=== PATIENT | male | born 1945 | race Caucasian/White ===

== ENCOUNTER 2019-04-22 16:55 | Inpatient (IN) ==
[2019-04-22] MEDS ORDERED: Aspirin 325 MG TABLET PO ONE (17:04)
--- NOTE | 2019-04-22 17:16 | Emergency Department Note ---
Disposition Clinical Impression: Unstable angina pectoris, ANTIONETTE (acute kidney injury) Disposition: Admitted As Inpatient Condition: Fair Time of Disposition: 18:58 Chest Pain HPI - General Chief Complaint: ED Chest Pain Stated Complaint: EKG changes Time Seen by Provider: 04/22/19 17:03 Source: EMS Mode of arrival: EMS Limitations: no limitations Vital Signs Reviewed: Yes Nursing Notes Reviewed: Yes - History of Present Illness HPI Narrative: 74-year-old male with history of CAD with 2 vessel CABG 2003 arrives to the emergency department with intermittent episodes complaints of chest pain at rest and during exertion. His dyspnea on exertion as well. Apparently the patient was getting evaluated for black lung at [facility] in [facility] where the patient was noted to have an abnormal stress test. He was subsequently referred back to the [facility] where he sees most of his primary care physician and caregivers. They sent him to the urgent care who subsequent sent him here to [facility]. The patient had a CBC and a troponin. CBC demonstrated a leukocytosis of 5.0, hemoglobin of 12.0. The patient's troponin was less than 0.015 which is normal on their scale. EKG there demonstrated no acute process. The patient was subsequently sent to [facility] for admission and "likely cardiac catheterization". The patient does admit to intermittent episodes of chest pressure on bilateral aspects of his upper chest that is worse with exertion. The patient does have a component where he has this pressure at rest. She stated that in route to the hospital he had an episode. He denies any hemoptysis, unilateral leg swelling, recent surgeries or lesions. Patient is otherwise resting comfortably in the room at this time. Severity scale (1-10): 0 - Related Data Allergies Allergy/AdvReac Type Severity Reaction Status Date / Time No Known Allergies Allergy Verified 04/22/19 17:12 All systems ED: reviewed and negative except as stated. Constitutional: Denies: fever, chills, weakness, weight change ENT ED: Denies: dysphagia Cardiovascular: Reports: chest pain, dyspnea on exertion, edema. Denies: orthopnea, syncope Respiratory: Denies: cough, dyspnea, sputum production Gastrointestinal: Denies: abdominal pain Genitourinary: Denies: urgency, dysuria Musculoskeletal: Denies: back pain Integumentary: Denies: rash Neurological: Denies: headache Chest Pain PMH - Past Medical History Medical history: Reports: hypertension Psychiatric history: Reports: no psych history - Social History Smoking Status: Former smoker Alcohol use: Reports: none Drug use: Reports: none Physical Exam - General Limitations: no limitations General appearance: alert, in no apparent distress - Head Head exam: atraumatic, normocephalic, normal inspection - Eye Eye exam: Present: normal appearance, PERRL, EOMI - ENT ENT exam: normal exam, normal oropharynx, mucous membranes moist - Neck Neck exam: Present: normal inspection, full ROM, trachea midline - Chest Chest inspection: Present: normal inspection, symmetric chest wall rise - Respiratory Respiratory exam: Present: normal lung sounds bilaterally - Cardiovascular Cardiovascular exam: Present: regular rate, normal rhythm, normal heart sounds - Abdominal Exam Abdominal exam: Present: soft, Non-Tender. Absent: tenderness, distention, guarding, rebound, rigidity - Extremities Exam Extremities exam: Present: normal inspection, full ROM, normal capillary refill. Absent: tenderness, pedal edema - Neurological Exam Neurological exam: Present: alert, oriented X3 - Skin Skin exam: Present: warm, dry, intact, normal color Course Vital Signs Temperature 97.7 F 04/22/19 17:04 Pulse Rate 62 04/22/19 17:04 Respiratory Rate 18 04/22/19 17:04 Blood Pressure 143/74 04/22/19 17:04 O2 Sat by Pulse Oximetry 100 04/22/19 17:04 Temperature 97.7 F 04/22/19 17:04 Pulse Rate 62 04/22/19 17:04 Respiratory Rate 18 04/22/19 17:04 Blood Pressure 143/74 04/22/19 17:04 O2 Sat by Pulse Oximetry 100 04/22/19 17:04 Oxygen Delivery Oxygen Delivery Room Air Procedures - Ultrasound-Other Narrative: Point of Care bedside ultrasound of the patient's cardiac movement demonstrates no pericardial effusion. Good cardiac motion noted. Chest Pain - MDM Narrative Medical decision making narrative: Patient's workup in the emergency department demonstrates no acute process but I am still concerned about unstable angina. The patient had ST depression noted on EKG during stress test at [facility]. We visualized the EKG. The patient has unstable anginal type symptoms and this is concerning. He has nonspecific EKG changes here in the emergency department from previous EKG. Troponin is negative. The patient was administered aspirin. Patient will be admitted to the hospital at this time for further workup and care. No further questions or concerns noted by the patient and the patient's daughter. Accepted by Dr. Ratliff, requested by hospitalist to call Cardiology. - Lab Data Lab results reviewed: Yes I reviewed the patient's lab results. Result diagrams: 04/22/19 17:17 Lab Results 04/22/19 Range/Units 17:17 Sodium 139 (136-145) mEq/L Potassium 3.7 (3.5-5.1) mEq/L Chloride 106 (98-107) mEq/L Carbon Dioxide 28 (23-29) mEq/L BUN 21 (8-23) mg/dL Creatinine 1.60 H (0.70-1.30) mg/dL Est GFR ( Amer) 52 L (> 60) Est GFR (Non-Af Amer) 43 L (> 60) BUN/Creatinine Ratio 13 (6-26) Glucose 113 H (70-105) mg/dL Calculated Osmolality 292 (280-300) Calcium 9.1 (8.6-10.3) mg/dL Troponin I < 0.03 (< 0.04) ng/mL - Radiology Data Radiology results reviewed: Yes I reviewed the patient's radiology results. Chest X-Ray 04/22/19 17:04 IMPRESSION: 1. Low lung volumes without acute cardiopulmonary disease. 2. Mild cardiomegaly, possibly exaggerated on the basis of AP technique. D/ / Misha Diaz / Misha Diaz Interpreting Provider: Misha Diaz - EKG Data EKG attestation: Yes I reviewed and interpreted this EKG. EKG results narrative: Rate 63 beats for minute. Normal sinus rhythm. No ST elevation or ST depression noted but there is some nonspecific changes noted from previous EKG on 02/17/2004. Also noted some mild low voltage noted throughout compared to previous EKG. Heart Score - Score History: Highly Suspicious EKG: Non Specific repolarisation Disturbance Age: Greater than 65 Risk Factors: Equal/Greater than 3 risk factor or history of atherosclerotic disease Troponin: Less than normal limit HEART Score Total: 7
--- NOTE | 2019-04-22 17:36 | Emergency Department Note ---
Disposition Clinical Impression: Unstable angina pectoris, ANTIONETTE (acute kidney injury) Disposition: Admitted As Inpatient Condition: Fair [facility]Primary Care Provider[facility] - Forms: ED Satisfaction Letter Time of Disposition: 19:44 General Adult HPI - General Chief complaint: ED Chest Pain Stated complaint: EKG changes Time Seen by Provider: 04/22/19 17:03 Source: EMS Mode of arrival: EMS Limitations: no limitations - History of Present Illness Pain Scale: 0 - Related Data Allergies Allergy/AdvReac Type Severity Reaction Status Date / Time No Known Allergies Allergy Verified 04/22/19 17:12 Past Medical History - Past Medical History Medical history: Reports: hypertension Psychiatric history: Reports: no psych history - Social History Smoking Status: Former smoker Smokeless Tobacco Status: No Alcohol use: Reports: none Drug use: Reports: none Physical Exam - General Limitations: no limitations General appearance: alert Course Vital Signs Temperature 97.7 F 04/22/19 17:04 Pulse Rate 62 04/22/19 17:04 Respiratory Rate 18 04/22/19 17:04 Blood Pressure 143/74 04/22/19 17:04 O2 Sat by Pulse Oximetry 100 04/22/19 17:04 Temperature 97.7 F 04/22/19 17:04 Pulse Rate 59 04/22/19 19:40 Respiratory Rate 18 04/22/19 19:40 Blood Pressure 126/62 04/22/19 19:40 O2 Sat by Pulse Oximetry 96 04/22/19 19:40 Oxygen Delivery Oxygen Delivery Nasal Cannula Medical Decision Making - Lab Data Result diagrams: 04/22/19 17:17 Lab Results 04/22/19 Range/Units 17:17 Sodium 139 (136-145) mEq/L Potassium 3.7 (3.5-5.1) mEq/L Chloride 106 (98-107) mEq/L Carbon Dioxide 28 (23-29) mEq/L BUN 21 (8-23) mg/dL Creatinine 1.60 H (0.70-1.30) mg/dL Est GFR ( Amer) 52 L (> 60) Est GFR (Non-Af Amer) 43 L (> 60) BUN/Creatinine Ratio 13 (6-26) Glucose 113 H (70-105) mg/dL Calculated Osmolality 292 (280-300) Calcium 9.1 (8.6-10.3) mg/dL Troponin I < 0.03 (< 0.04) ng/mL Attestation Statement - Attestation Attestation: I examined this patient and my medical decision-making was reviewed with the Resident Physician. I agree with the documented findings, disposition and treatment plan as described except to the extent set forth below. Patient presents to the ED as a transfer from the [facility]. Patient had an outpatient stress test done in [place]. It was positive for ischemia. He went to the urgent care at the [place] and was sent here. He denies any pain at this time. He has having some intermittent episodes of tightness across the top of his chest that happened with exertion and at rest. He has a history of coronary bypass surgery performed in 2003. On examination he is in no distress. Heart regular lungs clear. Plan. Cardiac workup. Admission for cardiology consult. Bedside echo performed by Dr. Guillen with my supervision. No obvious pericardial effusion. Troponin negative. Calling for admission. Some admitted to medicine. Troponin negative. EKG revealed the resident. Low voltage. New ST depressions. Chest X-Ray 04/22/19 17:04 IMPRESSION: 1. Low lung volumes without acute cardiopulmonary disease. 2. Mild cardiomegaly, possibly exaggerated on the basis of AP technique. D/ / Misha Diaz / Misha Diaz Interpreting Provider: Misha Diaz
[2019-04-22 18:09] LABS: BUN/Creatinine Ratio 13 (6-26); Blood Urea Nitrogen 21 mg/dL (8-23); Calcium 9.1 mg/dL (8.6-10.3); Carbon Dioxide 28 mEq/L (23-29); Chloride 106 mEq/L (98-107); Glucose 113 mg/dL (70-105); Osmolality,Calculated 292 (280-300); Potassium 3.7 mEq/L (3.5-5.1); Sodium 139 mEq/L (136-145); eGFR For African Americans 52 (> 60); eGFR For Non-African Americans 43 (> 60)
[2019-04-22 18:10] LABS: Troponin I < 0.03 ng/mL (< 0.04)
[2019-04-23] MEDS ORDERED: Naloxone 0.4 MG/ML INJ IVP PRN (03:32)
[2019-04-23] MEDS ORDERED: Fluticasone Propionate Nasal 50 MCG/SPRAY BOTTLE NS PRN ×2 (03:34→15:00)
[2019-04-23 04:51] LABS: Basophils # 0.1 K/mcL (0.0-0.2); Basophils % 1.4 %; Eosinophils # 0.2 K/mcL (0.0-0.6); Eosinophils % 3.2 %; Hematocrit 34.7 % (37.5-50.1); Hemoglobin 11.4 g/dL (12.9-16.9); Immature Granulocytes % 0.4 % (0-4); Lymphocytes # 1.8 K/mcL (0.6-4.6); Mean Corpuscular HGB Conc 32.9 g/dL (31.6-35.5); Mean Corpuscular Hemoglobin 28.4 pg (28.0-33.3); Mean Corpuscular Volume 86.5 fL (83.0-100.0); Mean Platelet Volume 10.6 fL (9.4-12.4); Monocytes # 0.5 K/mcL (0.0-1.3); Monocytes % 9.5 %; Neutrophils # 2.5 K/mcL (1.6-8.9); Platelet Count 103 K/mcL (140-400); Red Blood Count 4.01 M/mcL (4.19-5.50); Red Cell Distribution Width 12.7 % (11.5-14.5); Segmented Neutrophils % 49.5 %
[2019-04-23 05:05] LABS: Alanine Aminotransferase 8 Units/L (7-52); Albumin 3.5 g/dL (3.5-5.7); Albumin/Globulin Ratio 1.7 (1.1-2.2); Alkaline Phosphatase 72 Units/L (34-104); Aspartate Amino Transferase 17 Units/L (13-39); BUN/Creatinine Ratio 15 (6-26); Bilirubin,Total 0.9 mg/dL (0.3-1.0); Blood Urea Nitrogen 22 mg/dL (8-23); Calcium 8.8 mg/dL (8.6-10.3); Carbon Dioxide 24 mEq/L (23-29); Chloride 107 mEq/L (98-107); Globulin 2.1 g/dL (2.4-3.5); Glucose 87 mg/dL (70-105); Osmolality,Calculated 293 (280-300); Potassium 3.8 mEq/L (3.5-5.1); Sodium 140 mEq/L (136-145); Total Protein 5.6 g/dL (6.4-8.9); Troponin I < 0.03 ng/mL (< 0.04); eGFR For African Americans 57 (> 60); eGFR For Non-African Americans 47 (> 60)
--- NOTE | 2019-04-23 06:00 | Internal Med History&Physical ---
Date of Encounter: 04/23/19 Time of Encounter: 05:18 Internal Medicine - H&P: HPI Chief complaint: Abnormal stress test History of present illness: Mr. Roger is a 74 year old male with a past medical history of coronary artery bypass surgery, chronic hypoxic respiratory failure and history of black lung who was referred from the [place] due to a recent abnormal stress test. Patient states that he was undergoing a medical evaluation to see if he could pass the "black lung test " in order to receive a pension. Stress test was performed approximately 8 days ago. He was notified by his doctor today to come into the hospital for further evaluation due to findings concerning for ischemia. He does report intermittent chest tightness with exertion that has been ongoing for the past year. He also endorses dyspnea on exertion which has also been chronic. Patient is on 3 L nasal cannula at all times at home. On arrival vitals were stable. Laboratory workup was notable for mild anemia and elevation in creatinine of 1.65. Unclear if this is chronic or patient's baseline. Initial troponin was negative. EKG was performed showing sinus rhythm with flattening of T waves in leads 1, 2, aVL and the majority of the precordial leads compared with EKG in 2004. Patient asymptomatic at this time. Past Med Surg Social Fam HX - Past Medical History Medical history: hypertension Additional medical history: gout Psychiatric history: no psych history - Past Surgical History Surgical History: coronary bypass (CABG), vasectomy Additional surgical history: radiation seeds in prostate 2010 - Social History Smoking Status: Former smoker Smokeless Tobacco Status: No Alcohol use: none Drug use: none - Family History Father Adopted: [place]: [place]hemy Roger Family Member Ethnicity: Non- Living Status: Age at : 64 Cause of : heart attack Hx Family Cardiac Disorders: Yes (4 uncles of heart attacks) Mother Name: Marilyn Roger Family Member Ethnicity: Non- Living Status: Age at : 45 Cause of : blood clots Internal Medicine - H&P: Meds Allopurinol 150 mg PO DAILY 04/22/19 [History] Aspirin 81 mg PO DAILY 04/22/19 [History] Bisoprolol Fumarate 10 mg PO DAILY 04/22/19 [History] Fluticasone Propionate [Flonase Allergy Relief] 1 spray NS PRN PRN 04/22/19 [History] Hydrochlorothiazide 12.5 mg PO DAILY 04/22/19 [History] Lisinopril 5 mg PO DAILY 04/22/19 [History] Omeprazole 40 mg PO DAILY 04/22/19 [History] Symbicort 80/4.5 4.5 mcg PO PRN PRN 04/22/19 [History] Tamsulosin 0.4 mg PO DAILY 04/22/19 [History] Simvastatin [Zocor] 20 mg PO DAILY 04/23/19 [History] Allergy/AdvReac Type Severity Reaction Status Date / Time No Known Allergies Allergy Verified 04/22/19 17:12 All Systems PM: A 10-system review of systems was performed and is negative for pertinent findings except as documented above in the HPI. - Constitutional Constitutional: no chills, no fever(s), no night sweats - EENT Eyes: no change in vision, no discharge, no pain, no photophobia Ears: no ear discharge, no ear pain, no tinnitus Nose, mouth and throat: no dysphagia, no nasal discharge, no neck pain, no sore throat - Cardiovascular Cardiovascular ROS IM: no chest pain, no diaphoresis, no dyspnea, no lightheadedness, no palpitations, no syncope - Respiratory Respiratory: no cough, no dyspnea, no wheezing, no excessive phlegm production - Gastrointestinal Gastrointestinal: no abdominal pain, no diarrhea, no hematemesis, no hematochezia, no melena, no nausea, no vomiting - Musculoskeletal Musculoskeletal ROS IM: no numbness, no tingling - Integumentary Integumentary IM: no rash, no unusual bruising - Neurological Neurological ROS: no confusion, no convulsions, no focal weakness, no numbness, no tingling, no tremor(s) - Hematologic/Lymphatic Hematologic/Lymphatic: no easy bruising - Constitutional Vitals: Temp Pulse Resp BP Pulse Ox 98.5 F 63 14 118/64 96 04/23/19 03:56 04/23/19 03:56 04/23/19 03:56 04/23/19 03:56 04/23/19 03:56 Exam: General: Alert and oriented 3 Skin:Normal color, no rash, no lesions. HEENT:EOM, pupils equal, round and reactive. Cardiovascular:Normal S1 & S2, no rubs, murmurs or gallops. No JVD. Pulse regular. Lungs:Normal breath sounds, no wheezes or crackles. Abdomen:Soft, non-tender, no rigidity. Extremities:No deformity, no edema or tenderness, no joint swelling or clubbing. Neurological:Normal cognition and motor skills. Pulses:Carotid and radial pulses normal +2. Rest of the physical exam is non contributory Internal Med - H&P Results - Labs CBC & Chem 7: 04/23/19 04:16 04/23/19 04:16 Labs: Short CBC 04/23/19 Range/Units 04:16 WBC 5.0 (4.3-11.1) K/mcL Hgb 11.4 L (12.9-16.9) g/dL Hct 34.7 L (37.5-50.1) % Plt Count 103 L (140-400) K/mcL Neutrophils # 2.5 (1.6-8.9) K/mcL BMP 04/22/19 04/23/19 17:17 04:16 Sodium 139 140 Potassium 3.7 3.8 Chloride 106 107 Carbon Dioxide 28 24 BUN 21 22 Creatinine 1.60 H 1.46 H Glucose 113 H 87 Calcium 9.1 8.8 Cardiac Enzymes 04/22/19 04/23/19 Range/Units 17:17 04:16 Troponin I < 0.03 < 0.03 (< 0.04) ng/mL Liver Function 04/23/19 Range/Units 04:16 Total Bilirubin 0.9 (0.3-1.0) mg/dL AST 17 (13-39) Units/L ALT 8 (7-52) Units/L Alkaline Phosphatase 72 (34-104) Units/L Albumin 3.5 (3.5-5.7) g/dL - Impressions ITS Impressions Chest X-Ray 04/22/19 17:04 IMPRESSION: 1. Low lung volumes without acute cardiopulmonary disease. 2. Mild cardiomegaly, possibly exaggerated on the basis of AP technique. D/ / Misha Diaz / Misha Diaz Interpreting Provider: Misha Diaz - Assessment and Plan (1) Abnormal stress test Current Visit: Yes Status: Acute Assessment and plan: [facility] concerning for ischemia. Patient has been reporting intermittent chest pain with exertion. I nitial troponin negative. EKG shows T-wave flattening in multiple leads when compared to previous EKG in 2004. Patient currently asymptomatic. -Continue telemetry -Trend troponin -We will obtain echocardiogram in the morning -We will keep NPO in the event of heart catheter -Cardiology consult for further evaluation (2) ANTIONETTE (acute kidney injury) Current Visit: Yes Status: Acute Assessment and plan: Patient's creatinine found to be elevated at 1.65. Unclear if this is patient's baseline or acute kidney injury. We will continue patient on gentle hydration and monitor. (3) Chronic respiratory failure with hypoxia Current Visit: Yes Status: Acute Assessment and plan: Chronic hypoxic respiratory failure likely secondary to reported black lung from previous work in [place]. Patient is on 3 L at baseline. Currently stable and at baseline from a respiratory standpoint. We will continue O2 support and home inhalers as needed (4) DVT prophylaxis Current Visit: Yes Status: Acute Assessment and plan: Pneumatic compression devices - Time Spent With Patient Total time spent is greater than 50% in coordination of care (as documented) at patient's floor/unit and/or counseling patient:
[2019-04-23] MEDS ORDERED: *HR* Heparin 5,000 UNIT/ML VIAL SQ SCH (06:15)
[2019-04-23] MEDS ORDERED: 0.9 % Sodium Chloride 1,000 ML IVC SCH (06:15)
[2019-04-23] MEDS: Aspirin 81 MG TAB.CHEW PO SCH (08:10)
[2019-04-23] MEDS: Bisoprolol/HCTZ 5/6.25 TABLET PO SCH (08:11)
[2019-04-23] MEDS ORDERED: hydroCHLOROthiazide 25 MG TABLET PO SCH (09:00)
[2019-04-23] MEDS ORDERED: Regadenoson 0.4 MG/5 ML SYRINGE IVP ONE (11:08)
--- NOTE | 2019-04-23 12:16 | Internal Med Progress Note ---
Hospitalist Progress Note - Encounter Date of Encounter: 04/23/19 Time of Encounter: 09:30 - Subjective Interval History: H&P reviewed. Patient with history of CAD status post CABG was admitted overnight due to abnormal standard stress test done at [facility]. Currently denies any chest pain, SOB, orthopnea, PND but does report dyspnea on exertion. No fever - Exam Vitals: Temp Pulse Resp BP Pulse Ox 98.5 F 55 18 125/68 97 04/23/19 07:11 04/23/19 11:39 04/23/19 11:39 04/23/19 11:39 04/23/19 11:39 Exam: General: Alert and oriented, not in acute distress. Cardiovascular:Normal S1 & S2, No JVD. Pulse regular. Lungs: clear to auscultation, no wheezes/rales Abdomen:Soft, non-tender, no rigidity. Extremities:No deformity or swelling Neurological:Normal cognition and motor skills. Non-focal - Assessment and Plan (1) Abnormal stress test Current Visit: Yes Status: Acute Assessment and Plan: Patient referred from the [facility] due to recent abnormal standard stress test concerning for ischemia. ACS ruled out with serial troponins. Continue telemetry echocardiogram appreciate cardiology input, for pharmacological stress test today (2) Chronic respiratory failure with hypoxia Current Visit: Yes Status: Chronic Assessment and Plan: Chronic hypoxic respiratory failure likely secondary to reported black lung from previous work in [place]. Patient is on 3 L at baseline. Currently stable and at baseline from a respiratory standpoint. We will continue O2 support and home inhalers as needed (3) CKD (chronic kidney disease) stage 3, GFR 30-59 ml/min Current Visit: Yes Status: Chronic Assessment and Plan: pt reports hx of CKD stage 3, Cr stable around 1.5 will d/c IVF avoid nephrotoxins (4) HTN (hypertension) Current Visit: Yes Status: Chronic Assessment and Plan: Resume home meds (5) DVT prophylaxis Current Visit: Yes Status: Acute Assessment and Plan: SQ heparin - Time Spent with Patient Total time spent is greater than 50% in coordination of care (as documented) at patient's floor/unit and/or counseling patient: 25 - 35 minutes Plan of Care Discussed with: patient Internal Medicine: Result - Labs CBC & Chem 7: 04/23/19 04:16 04/23/19 04:16 Labs: Short CBC 04/23/19 Range/Units 04:16 WBC 5.0 (4.3-11.1) K/mcL Hgb 11.4 L (12.9-16.9) g/dL Hct 34.7 L (37.5-50.1) % Plt Count 103 L (140-400) K/mcL Neutrophils # 2.5 (1.6-8.9) K/mcL BMP 04/22/19 04/23/19 17:17 04:16 Sodium 139 140 Potassium 3.7 3.8 Chloride 106 107 Carbon Dioxide 28 24 BUN 21 22 Creatinine 1.60 H 1.46 H Glucose 113 H 87 Calcium 9.1 8.8 Cardiac Enzymes 04/22/19 04/23/19 Range/Units 17:17 04:16 Troponin I < 0.03 < 0.03 (< 0.04) ng/mL Liver Function 04/23/19 Range/Units 04:16 Total Bilirubin 0.9 (0.3-1.0) mg/dL AST 17 (13-39) Units/L ALT 8 (7-52) Units/L Alkaline Phosphatase 72 (34-104) Units/L Albumin 3.5 (3.5-5.7) g/dL - Impressions Impressions Chest X-Ray 04/22/19 17:04 IMPRESSION: 1. Low lung volumes without acute cardiopulmonary disease. 2. Mild cardiomegaly, possibly exaggerated on the basis of AP technique. D/ / Misha Diaz / Misha Diaz Interpreting Provider: Misha Diaz Consult Discharge Plan - Plan [facility]errals: [facility] [Primary Care Provider] - (4) HTN (hypertension) Qualifiers: Hypertension type: essential hypertension Qualified Code(s): I10 - Essential (primary) hypertension
[2019-04-23] MEDS ORDERED: Perflutren Lipid Microsphere 1.3 ML in 0.9 % Sodium Chloride 8.7 ML IVP ONE (12:37)
--- NOTE | 2019-04-23 14:46 | Electrocardiograph Report ---
[place] [id number] Test Date: 2019-04-22 Pat Name: Mason Roger Department: EXAM26 Room: 2N6 Gender: M [employer] Research Director: : 1945 Requested By: Jace Jacobo Order Number: [id number] Reading MD: Elvis Marin Measurements Intervals [place] Rate: 63 P: 38 NV: 145 QRS: 15 QRSD: 96 T: 41 QT: 413 QTc: 423 Interpretive Statements Sinus rhythm Low voltage, precordial leads Electronically Signed On 04-23-2019 14:44:07 EDT by Elvis Marin
--- NOTE | 2019-04-23 15:34 | Cardiology Consult Note ---
<Tamir Fountain - Last Filed: 04/23/19 15:30> Date of Encounter: 04/23/19 Time of Encounter: 15:30 Assessment and Plan (1) Abnormal stress test Status: Acute Abnormal standard stress test completed on 04/15/2019. Stress test showed inferior lateral ischemia on EKG during peak exercise. Patient is recommended to complete a full pharmacologic nuclear stress test. Echocardiogram also recommended. Patient does describe intermittent chest discomfort with exertion ongoing for one year. (2) CAD (coronary artery disease) Status: Acute History of remote bypass surgery at [facility]. Continue aspirin, statin, beta angie. Qualifiers: Coronary Disease-Associated Artery/Lesion type: nondalton artery [place] vs. transplanted heart: nondalton heart Associated angina: without angina Qualified Code(s): I25.10 - Atherosclerotic heart disease of nondalton coronary artery without angina pectoris Discussion w patient/family: The assessment and plan as outlined above was discussed with the patient and/or family members who expressed understanding and agreement. All questions were answered. Thank you for involving us in the care of your patient. Please call with any questions. History of Present Illness Consult date: 04/23/19 Requesting physician: Sarmad Stokes Consult reason: Chest pain, abnormal stress Chief complaint: Chest pain History of present illness: Mr. Roger is a 74 year old male with past medical history of CABG 15 years ago at [facility], CKD, HTN, and lung disease on home O2 who presents from [place] due to abnormal stress test. Stress test showed ST depression in the inferior lateral leads during peak exercise. Patient reports intermittent chest pain that occurs with exertion. Chest pain has been ongoing for one year. He also notes dyspnea on exertion. He does wear home oxygen. Stress test was completed to work up his lung disease. Nuclear exercise stress test was completed one year ago and noted to be negative for ischemia. Patient was transferred from the [facility] due to concerns of worsening symptoms. Past Med Surg Social Fam HX - Past Medical History Medical history: coronary artery disease, hyperlipidemia, hypertension Additional medical history: gout Psychiatric history: no psych history - Past Surgical History Surgical History: coronary bypass (CABG), vasectomy Additional surgical history: radiation seeds in prostate 2010 - Social History Smoking Status: Former smoker Smokeless Tobacco Status: No Alcohol use: none Drug use: none - Family History Father Adopted: [place]: Nohemy Roger Family Member Ethnicity: Non- Living Status: Age at : 64 Cause of : heart attack Hx Family Cardiac Disorders: Yes (4 uncles of heart attacks) Mother Name: Marilyn Roger Family Member Ethnicity: Non- Living Status: Age at : 45 Cause of : blood clots Medications and Allergies Acetaminophen [Tylenol] 325 mg PO Q6HR PRN 04/23/19 [History] Allopurinol [Zyloprim] 150 mg PO DAILY 04/23/19 [History] Aspirin Enteric Coated [Aspirin EC] 81 mg PO DAILY 04/23/19 [History] Bisoprolol Fumarate [Zebeta] 10 mg PO QAM 04/23/19 [History] Fluticasone Propionate Nasal [Flonase] 1 spray NS BID PRN 04/23/19 [History] Lisinopril [Zestril] 5 mg PO DAILY 04/23/19 [History] Omeprazole [PriLOSEC] 40 mg PO DAILY 04/23/19 [History] Simvastatin [Zocor] 40 mg PO QPM 04/23/19 [History] Tamsulosin HCl [Flomax] 0.4 mg PO DAILY 04/23/19 [History] hydroCHLOROthiazide [Hydrochlorothiazide] 12.5 mg PO DAILY 04/23/19 [History] Allergy/AdvReac Type Severity Reaction Status Date / Time No Known Allergies Allergy Verified 04/23/19 14:15 All Systems Review: The remainder of the systems were reviewed and are negative Physical Examination Vital Signs, Last 4 Hours Pulse Resp BP Pulse Ox 04/23/19 11:39 55 18 125/68 97 General: Conversant, No Apparent Distress HEENT: Atraumatic, Normocephaly, Mucus Membranes Moist Neck: No JVD, Normal carotid pulses Cardiac: Reg Rate and Rhythm, Normal S1 and S2, No Murmur Lungs: Normal Breath Sounds, No Wheeze, Rales, Rhonchi Neuro: Alert and responsive, No focal deficits noted Abdomen: Soft, Non-Tender Skin: No rashes noted on visualized skin Musculoskeletal: No Chest Wall Tenderness Extremities: No Clubbing, No Cyanosis, No Edema, Normal Pulses Results 04/23/19 04:16 04/23/19 04:16 Lab Results 04/22/19 04/23/19 04/23/19 17:17 04:16 04:16 WBC 5.0 Hgb 11.4 L Hct 34.7 L Plt Count 103 L Sodium 139 140 Potassium 3.7 3.8 Chloride 106 107 Carbon Dioxide 28 24 BUN 21 22 Creatinine 1.60 H 1.46 H Glucose 113 H 87 Calcium 9.1 8.8 Total Bilirubin 0.9 AST 17 ALT 8 Alkaline Phosphatase 72 Troponin I < 0.03 < 0.03 - Imaging and Cardiology Stress Test: report reviewed Echo: report reviewed - EKG Interpretation EKG results cardiology: personally reviewed Consult Discharge Plan - Plan Instructions: Chest Pain (DC) [facility]: [facility]Primary Care Provider[facility] - <Elvis Marin A - Last Filed: 04/24/19 21:09> Date of Encounter: 04/24/19 - Attending Attestation I have personally performed a face to face evaluation on this patient. I have reviewed and agree with the documented findings and care plan as documented by the [facility]. History and Exam by me shows: Patient with history of CAD s/p CABG; please obtain pharmacological nuclear stress test as it is preferred to exercise EKG ST, given CABG. Thanks, Elvis Marin MD FACC Assessment and Plan Discussion w patient/family: The assessment and plan as outlined above was discussed with the patient and/or family members who expressed understanding and agreement. All questions were answered. Thank you for involving us in the care of your patient. Please call with any questions. History of Present Illness History of present illness: Mr. Roger is a 74 year old male All Systems Review: The remainder of the systems were reviewed and are negative Results 04/23/19 04:16 04/23/19 04:16
[2019-04-23] MEDS ORDERED: Budesonide/Formoterol 80/4.5 MDI IH SCH (22:00)
[2019-04-24 07:21] VITALS: BP 113/55
[2019-04-24] MEDS: Aspirin 81 MG TAB.CHEW PO SCH (09:53)
[2019-04-24] MEDS: Bisoprolol/HCTZ 5/6.25 TABLET PO SCH (09:53)
--- NOTE | 2019-04-24 10:05 | Discharge Summary ---
- NOTES TO OUTPATIENT PROVIDER Notes to Outpatient Provider: Follow with cardiology as outpatient Orders not resulted at time of discharge: Pending orders 04/23/19 10:53 NM neptali perf SPECT multi [NM] Routine Date of Encounter: 04/24/19 Time of Encounter: 07:30 - Discharge Diagnosis (1) Abnormal stress test Priority: Primary Status: Acute (2) Chronic respiratory failure with hypoxia Priority: Secondary Status: Chronic (3) DVT prophylaxis Priority: Secondary Status: Acute (4) CKD (chronic kidney disease) stage 3, GFR 30-59 ml/min Priority: Secondary Status: Chronic Hospital course: Mr. Roger is a 74 year old male with history of CAD status post CABG who was admitted due to abnormal standard stress test done at [facility]. patient however not have any signs or symptoms of angina/ACS. Seen in consultation with cardiology and underwent pharmacological stress test at our facility which was negative for ischemia. Echocardiogram also showed preserved EF. He will be discharged home with outpatient cardiology appt. Discharge discussed with: patient, family, nurse - Time Spent with Patient Total time spent providing and/or coordinating discharge services: 33 mins - Discharge Medications Prescriptions: Continued Simvastatin [Zocor] 40 mg PO QPM Acetaminophen [Tylenol] 325 mg PO Q6HR PRN PRN Reason: Pain Tamsulosin HCl [Flomax] 0.4 mg PO DAILY Omeprazole [PriLOSEC] 40 mg PO DAILY Lisinopril [Zestril] 5 mg PO DAILY hydroCHLOROthiazide [Hydrochlorothiazide] 12.5 mg PO DAILY Fluticasone Propionate Nasal [Flonase] 1 spray NS BID PRN PRN Reason: Allergy Symptoms Bisoprolol Fumarate [Zebeta] 10 mg PO QAM Aspirin Enteric Coated [Aspirin EC] 81 mg PO DAILY Allopurinol [Zyloprim] 150 mg PO DAILY Home Medications: Acetaminophen [Tylenol] 325 mg PO Q6HR PRN 04/23/19 [History] Allopurinol [Zyloprim] 150 mg PO DAILY 04/23/19 [History] Aspirin Enteric Coated [Aspirin EC] 81 mg PO DAILY 04/23/19 [History] Bisoprolol Fumarate [Zebeta] 10 mg PO QAM 04/23/19 [History] Fluticasone Propionate Nasal [Flonase] 1 spray NS BID PRN 04/23/19 [History] Lisinopril [Zestril] 5 mg PO DAILY 04/23/19 [History] Omeprazole [PriLOSEC] 40 mg PO DAILY 04/23/19 [History] Simvastatin [Zocor] 40 mg PO QPM 04/23/19 [History] Tamsulosin HCl [Flomax] 0.4 mg PO DAILY 04/23/19 [History] hydroCHLOROthiazide [Hydrochlorothiazide] 12.5 mg PO DAILY 04/23/19 [History] Allergies/Adverse Reactions: Allergy/AdvReac Type Severity Reaction Status Date / Time No Known Allergies Allergy Verified 04/23/19 14:15 Date of admission: 04/23/19 12:12 [facility] physician: [facility] Consults: 04/23/19 05:17 Consult to Cardiology [CONS] Routine Comment: Consulting Provider: Cardiology C[facility] Reason for Consult: [facility] patient referred here due to Abnormal stress test. Call Completed: No - Constitutional Vitals: Temp Pulse Resp BP Pulse Ox 97.9 F 60 19 113/55 96 04/24/19 07:19 04/24/19 07:19 04/24/19 07:19 04/24/19 07:19 04/24/19 07:19 Exam: General: Alert and oriented, not in acute distress. Cardiovascular:Normal S1 & S2, No JVD. Pulse regular. Lungs: clear to auscultation, no wheezes/rales Abdomen:Soft, non-tender, no rigidity. Extremities:No deformity or swelling Neurological:Normal cognition and motor skills. Non-focal - Patient Status Disposition: Home, Self-Care Condition: Fair Functional capacity at discharge: independent ambulation Overall status at discharge: patient is progressing back to baseline - Discharge Instructions Follow Up With: [facility] [Primary Care Provider] - - Diet and Activity Activity: resume usual activities as tolerated Diet: low salt diet
== END 2019-04-24 12:59 | disposition home or self-care (01) | DRG 315 ==
LOC: EMEROOARM 16:55 → 2NENU 16:55 → SUATTDRO 19:47 → 2NENU 22:47
PROVIDERS: ADMIT Internal Medicine Nephrology; ATTEND Internal Medicine

== ENCOUNTER 2020-10-23 13:39 | Inpatient (IN) ==
[2020-10-23 16:44] LABS: Hemoglobin 6.2 g/dL (12.9-16.9); Mean Corpuscular Volume 99.5 fL (83.0-100.0)
[2020-10-23 16:46] LABS: Hematocrit 20.8 % (37.5-50.1); Lymphocytes # 1.5 K/mcL (0.6-4.6); Mean Corpuscular HGB Conc 29.8 g/dL (31.6-35.5); Mean Corpuscular Hemoglobin 29.7 pg (28.0-33.3); Nucleated Red Blood Cells 12.2 /100 WBC (0); Red Blood Count 2.09 M/mcL (4.19-5.50); Red Cell Distribution Width 19.2 % (11.5-14.5); White Blood Count 2.4 K/mcL (4.3-11.1)
[2020-10-23 16:47] LABS: INR 1.2; Prothrombin Time 14.1 Seconds (9.4-12.1)
[2020-10-23 16:49] LABS: Activated Partial Thrombo Time 31.8 Seconds (26.0-36.0)
[2020-10-23 17:11] LABS: Platelet Count 7 K/mcL (140-400)
[2020-10-23 17:14] LABS: Albumin 4.4 g/dL (3.5-5.7); Albumin/Globulin Ratio 1.9 (1.1-2.2); Bilirubin,Direct 0.3 mg/dL (0.0-0.2); Bilirubin,Indirect 1.1 mg/dL (0.0-1.0); Bilirubin,Total 1.4 mg/dL (0.3-1.0); Calcium 9.2 mg/dL (8.6-10.3); Globulin 2.3 g/dL (2.4-3.5); Potassium 4.9 mEq/L (3.5-5.1); Total Protein 6.7 g/dL (6.4-8.9); Troponin I 0.1 ng/mL (< 0.04)
[2020-10-23 17:34] LABS: Eosinophils # 0.1 K/mcL (0.0-0.6); Neutrophils # 0.7 K/mcL (1.6-8.9); Platelet Estimate Marked Decrease (Normal); Polychromasia 1+ (Not Present)
[2020-10-23 17:35] LABS: Acanthocytes 2+ (Not Present)
[2020-10-23 18:26] LABS: Adenovirus Not Detected (Not Detect); Bordetella Pertussis Not Detected (Not Detect); Chlamydophila pneumoniae Not Detected (Not Detect); Coronavirus 229E Not Detected (Not Detect); Coronavirus HKU1 Not Detected (Not Detect); Coronavirus NL63 Not Detected (Not Detect); Coronavirus OC43 Not Detected (Not Detect); Human Metapneumovirus Not Detected (Not Detect); Human Rhinovirus/Enterovirus Not Detected (Not Detect); Influenza A Subtype 2009 H1 Not Detected (Not Detect); Influenza B Not Detected (Not Detect); Mycoplasma pneumoniae Not Detected (Not Detect); Parainfluenza Virus 1 Not Detected (Not Detect); Parainfluenza Virus 2 Not Detected (Not Detect); Parainfluenza Virus 3 Not Detected (Not Detect); Parainfluenza Virus 4 Not Detected (Not Detect); Respiratory Syncytial Virus Not Detected (Not Detect); SARS-CoV-2 Not Detected (Not Detect)
[2020-10-23 19:17] LABS: Bilirubin,Urine Negative (Negative); Blood,Urine Negative (Negative); Clarity,Urine Clear (Clear); Color,Urine Light-Yellow (Yellow); Glucose,Urine (UA) Normal (Normal); Ketones,Urine Negative (Negative); Leukocyte Esterase,Urine Negative (Negative); Nitrite,Urine Negative (Negative); PH,Urine 5.5 pH Units (5.0-8.0); Protein,Urine Negative (Neg-Trace); Specific Gravity,Urine 1.021 (1.010-1.025); Urobilinogen,Urine Normal (Normal)
[2020-10-23 19:27] LABS: Folate 9.9 ng/mL (3.0-16.0)
[2020-10-23] MEDS ORDERED: 0.9 % Sodium Chloride 250 ML ONE (19:35)
[2020-10-23] MEDS ORDERED: Naloxone 0.4 MG/ML INJ IVP PRN (20:04)
[2020-10-23] MEDS ORDERED: 0.9 % Sodium Chloride 1,000 ML IVC SCH (22:00)
[2020-10-24] MEDS ORDERED: 0.9 % Sodium Chloride 250 ML ONE (03:05)
[2020-10-24 06:47] LABS: Mean Corpuscular Hemoglobin 31.5 pg (28.0-33.3)
[2020-10-24 06:49] LABS: Hematocrit 24.2 % (37.5-50.1); Hemoglobin 7.8 g/dL (12.9-16.9); Immature Platelets 5.3 % (1.1-6.1); Mean Corpuscular HGB Conc 32.2 g/dL (31.6-35.5); Mean Corpuscular Volume 97.6 fL (83.0-100.0); Mean Platelet Volume 9.8 fL (9.4-12.4); Nucleated Red Blood Cells 10.6 /100 WBC (0); Red Blood Count 2.48 M/mcL (4.19-5.50); White Blood Count 2.4 K/mcL (4.3-11.1)
[2020-10-24 07:14] LABS: Calcium 8.8 mg/dL (8.6-10.3); Potassium 4.4 mEq/L (3.5-5.1)
[2020-10-24 08:03] LABS: Hepatitis B Surface Antigen Nonreactive (Nonreactive)
[2020-10-24 08:32] LABS: Hepatitis C Virus Antibody Nonreactive (Nonreactive)
[2020-10-24 08:33] LABS: Hepatitis B Core IgM Nonreactive (Nonreactive)
[2020-10-24 08:34] LABS: Hepatitis A Antibody IgM Nonreactive (Nonreactive)
[2020-10-24 09:12] LABS: Platelet Count 20 K/mcL (140-400)
[2020-10-24 09:16] LABS: Lymphocytes # 1.9 K/mcL (0.6-4.6); Monocytes # 0.1 K/mcL (0.0-1.3); Neutrophils # 0.5 K/mcL (1.6-8.9); Platelet Estimate Marked Decrease (Normal); Reactive Lymphocytes Present (Not Present)
[2020-10-24 09:19] LABS: Anisocytosis 1+ (Not Present); Poikilocytosis 1+ (Not Present); Polychromasia 1+ (Not Present)
[2020-10-24] MEDS ORDERED: 0.9 % Sodium Chloride 500 ML ONE (12:21)
[2020-10-24] MEDS ORDERED: Acetaminophen 325 MG TABLET PO PRN (15:09)
[2020-10-25 01:29] LABS: Hematocrit 25.9 % (37.5-50.1)
[2020-10-25 01:32] LABS: Eosinophils # 0.1 K/mcL (0.0-0.6); Hemoglobin 8.3 g/dL (12.9-16.9); Immature Platelets 4.4 % (1.1-6.1); Mean Corpuscular Hemoglobin 31.7 pg (28.0-33.3); Mean Corpuscular Volume 98.9 fL (83.0-100.0); Mean Platelet Volume 11.1 fL (9.4-12.4); Nucleated Red Blood Cells 9.6 /100 WBC (0); Red Blood Count 2.62 M/mcL (4.19-5.50); White Blood Count 2.2 K/mcL (4.3-11.1)
[2020-10-25 01:43] LABS: Platelet Count 19 K/mcL (140-400)
[2020-10-25 01:45] LABS: Calcium 8.6 mg/dL (8.6-10.3); Potassium 4.3 mEq/L (3.5-5.1)
[2020-10-25 02:03] LABS: Anisocytosis 2+ (Not Present); Lymphocytes # 1.4 K/mcL (0.6-4.6); Neutrophils # 0.6 K/mcL (1.6-8.9); Platelet Estimate Marked Decrease (Normal); Reactive Lymphocytes Present (Not Present)
[2020-10-25 02:04] LABS: Basophilic Stippling 1+ (Not Present); Polychromasia 1+ (Not Present)
[2020-10-25 11:22] VITALS: BP 142/55
== END 2020-10-25 15:54 | disposition home or self-care (01) | DRG 809 ==
LOC: EMEROOARM 13:39 → 2ANU 13:39 → SUATTDRO 20:30 → 2ANU 21:22 → SUATTDRO 10-24 19:42
PROVIDERS: ADMIT Internal Medicine; ATTEND Internal Medicine